=== PATIENT | female | born 2000 | race Two or more races ===

== ENCOUNTER 2024-03-16 06:49 | Emergency (ER) | payer OTHER ==
[~2024-03-16] VITALS: Ht 162.6 cm; Wt 95.4 kg
[2024-03-16] MEDS ORDERED: CEPH500C PO (07:47)
[2024-03-16] MEDS: CEPHALEXIN 500 MG CAP PO ONE (07:49)
[2024-03-16 08:20] VITALS: BP 125/78; TEMP 97.6; O2SAT 99
== END 2024-03-16 08:23 | disposition home or self-care (01) ==
LOC: M ED 06:49
DX: H01.004 Unspecified blepharitis left upper eyelid (principal); Z79.2 Long term (current) use of antibiotics